=== PATIENT | female | born 1990 | race Caucasian/White ===

== ENCOUNTER → 2020-06-23 | Outpatient (CLI) | payer OTHER ==
[~2020-06-23] VITALS: Ht 167.6 cm; Wt 113.4 kg
[~2020-06-23] MED LIST: BUSPAR10 MG PO; PRISTIQ 50 MG T50 MG PO
[2020-06-23 13:50] VITALS: BP 110/76; PULSE 72
== END ==
LOC: LIGHT 13:10
DX: E66.01 Morbid (severe) obesity due to excess calories (principal); Z68.41 Body mass index [BMI] 40.0-44.9, adult
CPT/HCPCS: G0463